=== PATIENT | female | born 1965 | race Caucasian/White ===

== ENCOUNTER 2018-03-24 21:58 | Emergency (ER) | payer SELFPAY ==
[~2018-03-24] VITALS: Ht 167.6 cm; Wt 76.7 kg
[2018-03-24 21:58] VITALS: BP 136/99
--- NOTE | 2018-03-24 22:00 | NUR ---
Patient BIBA BLS, transferred to bed 4. RN evaluating patient at bedside.
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
[2018-03-24] MEDS ORDERED: IBUPROFEN 800 MG TAB PO ONE (22:10)
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
[2018-03-25 00:05] VITALS: BP 149/94
--- NOTE | 2018-03-25 00:05 | NUR ---
Patient discharged with v/s stable. Written and verbal after care instructions given and explained. Patient alert, oriented and verbalized understanding of instructions. Ambulatory with steady gait. All questions addressed prior to discharge. ID band removed. Patient advised to follow up with PMD. Rx of motrin 800 given. Patient educated on indication of medication including possible reaction and side effects. Opportunity to ask questions provided and answered.
== END 2018-03-25 00:05 | disposition home or self-care (01) ==
LOC: MED 21:58
DX: M65.221 Calcific tendinitis, right upper arm (principal); S70.311A Abrasion, right thigh, initial encounter; R07.81 Pleurodynia; Y04.2XXA Assault by strike against or bumped into by another person, initial encounter; Y93.89 Activity, other specified; Y92.89 Other specified places as the place of occurrence of the external cause; Y99.8 Other external cause status
CPT/HCPCS: 71101; 73030; 73110; 90471; 90715; 99284